=== PATIENT | female | born 1980 | race African-American/Black ===

== ENCOUNTER 2018-06-15 00:01 | Emergency (ER) | payer MEDICAID ==
[~2018-06-15] VITALS: Ht 177.8 cm; Wt 113.0 kg
[2018-06-15] MEDS ORDERED: FAMOTIDINE 20MG/2ML VIAL IV STA (00:15)
[2018-06-15] MEDS ORDERED: MAGNESIUM/ALUMINUM HYDROXIDE/SIMETHICONE 30ML UDC PO STA (00:15)
[2018-06-15] MEDS ORDERED: SODIUM CHLORIDE 0.9% 1,000 ML IV ONE (00:15)
[2018-06-15] MEDS ORDERED: ONDANSETRON HCL 4MG/2ML INJ IV STA (00:15)
[2018-06-15] MEDS ORDERED: MORPHINE SULFATE 4 MG/ML CPJ (NOT FOR IM USE) IV STA (00:15)
[2018-06-15 00:36] LABS: BASOPHILS % 0.8 % (0.0-2.0); EOSINOPHILS % 1.2 % (0.0-5.0); HEMATOCRIT. 35.2 % (36.0-48.0); HEMOGLOBIN. 11.5 g/dL (12.0-16.0); LYMPHOCYTES % 31.4 % (20.0-50.0); MEAN CORPUSCULAR HEMOGLOBIN 26.2 pg (28.0-32.0); MEAN CORPUSCULAR VOLUME 80.6 fL (81.0-99.0); MEAN PLATELET VOLUME 9.7 fl (7.4-10.4); MONOCYTES % 6.6 % (2.0-8.0); PLATELET 184 x1000/uL (130-400); RED BLOOD CELL COUNT 4.37 mill/uL (4.2-5.4); RED CELL DISTRIBUTION WIDTH 14.8 % (11.6-14.6)
[2018-06-15 00:44] LABS: CHLORIDE 106 mEq/L (98-107)
[2018-06-15 00:45] LABS: PROTHROMBIN TIME 10.4 sec (9.1-11.1)
[2018-06-15 00:47] LABS: ETHANOL BLOOD < 10 mg/dL
[2018-06-15 00:52] LABS: HCG SCREEN NEGATIVE
[2018-06-15 01:03] LABS: CLARITY URINE TURBID (CLEAR); COLOR URINE RED (YELLOW); KETONES URINE NEGATIVE (NEGATIVE); LEUKOCYTE ESTERASE URINE 2+ (NEGATIVE); NITRITE URINE NEGATIVE (NEGATIVE); OCCULT BLOOD URINE 3+ (NEGATIVE); PROTEIN URINE 2+ (NEGATIVE); SPECIFIC GRAVITY URINE 1.023 (1.005-1.030); UROBILINOGEN URINE 0.2 E.U./dL (0.2-1.0)
[2018-06-15] MEDS ORDERED: LEVOFLOXACIN 500MG TABLET PO ONE (01:30)
[2018-06-15] MEDS ORDERED: KETOROLAC 30MG/ML VIAL IV ONE (01:30)
[2018-06-15 04:21] VITALS: BP 130/98
== END 2018-06-15 04:31 | disposition home or self-care (01) ==
LOC: ER 00:01
DX: N30.90 Cystitis, unspecified without hematuria (principal); R03.0 Elevated blood-pressure reading, without diagnosis of hypertension
CPT/HCPCS: 36415; 74176; 80053; 81003; 81025; 83690; 84703; 85025; 85610; 87086; 96374; 96375; 99284; G0482; J1885; J2270; J2405; J3490; J7030

== ENCOUNTER 2021-03-13 19:48 | Emergency (ER) | payer MEDICAID ==
[~2021-03-13] VITALS: Ht 165.1 cm; Wt 94.0 kg
[2021-03-13] MEDS ORDERED: DIPHENHYDRAMINE 50MG/ML VIAL IV ONE (20:30)
[2021-03-13] MEDS ORDERED: METOCLOPRAMIDE HCL 10MG/2ML VIAL IV ONE (20:30)
[2021-03-13] MEDS ORDERED: SODIUM CHLORIDE 0.9% 1,000 ML IV ONE (20:30)
[2021-03-13 21:24] LABS: BASOPHILS % 0.7 % (0.0-2.0); EOSINOPHILS % 2.8 % (0.0-5.0); HEMATOCRIT. 35.5 % (36.0-48.0); HEMOGLOBIN. 11.6 g/dL (12.0-16.0); LYMPHOCYTES % 30.7 % (20.0-50.0); MEAN CORPUSCULAR HEMOGLOBIN 24.6 pg (28.0-32.0); MEAN PLATELET VOLUME 9.3 fl (7.4-10.4); MONOCYTES % 4.4 % (2.0-8.0); NEUTROPHILS % 61.4 % (40.0-76.0); PLATELET 207 x1000/uL (130-400); RED BLOOD CELL COUNT 4.73 mill/uL (4.2-5.4); RED CELL DISTRIBUTION WIDTH 16.7 % (11.6-14.6)
[2021-03-13 21:30] LABS: CHLORIDE 104 mEq/L (98-107)
[2021-03-13 23:23] VITALS: BP 118/87
== END 2021-03-13 23:26 | disposition home or self-care (01) ==
LOC: ER 19:48
DX: I95.1 Orthostatic hypotension (principal); R51.9 Headache, unspecified; M79.603 Pain in arm, unspecified; I44.0 Atrioventricular block, first degree; Z59.01 Sheltered homelessness; J45.909 Unspecified asthma, uncomplicated; Z91.81 History of falling
CPT/HCPCS: 36415; 70450; 80053; 84484; 85025; 93005; 96361; 96374; 96375; 99284; J1200; J2765; J7030

== ENCOUNTER 2022-04-03 15:11 | Emergency (ER) | payer MEDICAID ==
[~2022-04-03] VITALS: Ht 167.6 cm; Wt 91.0 kg
[2022-04-03 15:15] VITALS: BP 127/97
== END 2022-04-03 16:39 | disposition home or self-care (01) ==
LOC: ER 15:20
DX: R20.8 Other disturbances of skin sensation (principal); J45.909 Unspecified asthma, uncomplicated; Z88.0 Allergy status to penicillin
CPT/HCPCS: 99283